=== PATIENT | male | born 1975 | race Two or more races ===

== ENCOUNTER 2021-01-22 07:19 | Emergency (ER) | payer MEDICAID, OTHER ==
[~2021-01-22] VITALS: Ht 175.3 cm; Wt 100.0 kg
[2021-01-22 07:50] VITALS: BP 124/86
--- NOTE | 2021-01-22 08:31 | NUR ---
NURSE WENT OUT TO SWAP PT. PT IS NOT ON THE AMBULANCE BAY OR IN PARKING LOT
--- NOTE | 2021-01-22 08:32 | NUR ---
pt was not in ambulance for covid swab testing
== END 2021-01-22 09:34 | disposition home or self-care (01) ==
LOC: ER 07:20
DX: R43.8 Other disturbances of smell and taste (principal); R11.2 Nausea with vomiting, unspecified; R05 Cough; Z20.822 Contact with and (suspected) exposure to COVID-19; Z88.6 Allergy status to analgesic agent; Z79.899 Other long term (current) drug therapy; Z91.013 Allergy to seafood
CPT/HCPCS: 36415; 99283; U0003; U0005

== ENCOUNTER 2024-08-19 06:30 | Day surgery (SDC) | payer MEDICAID ==
[~2024-08-19] VITALS: Ht 175.3 cm; Wt 104.5 kg
[~2024-08-19 06:30] MED LIST: ALLO100T PO; ATOR20TA66 PO; INDO50CA96 PO; VENL37.589 PO
[2024-08-19 07:03] VITALS: BP 138/99; PULSE 111; RESP 15
[2024-08-19] MEDS ORDERED: LIDOcaine 2% Viscous 15ml cup ONE (07:11)
[2024-08-19] MEDS ORDERED: diphenhydrAMINE 50 mg/ml inj ONE (08:15)
[2024-08-19] MEDS ORDERED: MIDAZolam 1 MG/ML 5ML VIAL ONE (08:15)
[2024-08-19] MEDS ORDERED: fentaNYL/PF 50MCG/1 ML 2ML syringe ONE (08:15)
[2024-08-19] MEDS ORDERED: simethicone 40mg/0.6ml oral drops 30ml ONE (08:16)
[2024-08-19 09:00] VITALS: BP 149/110; PULSE 92; RESP 19; O2SAT 95
[2024-08-19 09:10] VITALS: BP 142/103; PULSE 89; RESP 19; O2SAT 96
[2024-08-19 09:20] VITALS: BP 160/96; PULSE 88; RESP 20; O2SAT 96
[2024-08-19 09:30] VITALS: BP 140/98; PULSE 95; RESP 17; O2SAT 98
== END 2024-08-19 09:40 | disposition home or self-care (01) ==
LOC: GI LAB 06:30
PROVIDERS: ATTEND Internal Medicine Gastroenterology
DX: R19.7 Diarrhea, unspecified (principal); K57.30 Diverticulosis of large intestine without perforation or abscess without bleeding; D12.8 Benign neoplasm of rectum; K29.80 Duodenitis without bleeding; K76.0 Fatty (change of) liver, not elsewhere classified; K26.9 Duodenal ulcer, unspecified as acute or chronic, without hemorrhage or perforation; K29.50 Unspecified chronic gastritis without bleeding; K25.9 Gastric ulcer, unspecified as acute or chronic, without hemorrhage or perforation; Z79.899 Other long term (current) drug therapy; Z98.890 Other specified postprocedural states
CPT/HCPCS: 43239; 45385; 99152; 99153; J2250; J3010; J7030; Z7512; 45380; 45382; A4620; C1889; J1200